=== PATIENT | female | born 2000 | race Caucasian/White ===

== ENCOUNTER 2019-04-14 13:57 | Outpatient (CLI) | payer OTHER, SELFPAY ==
--- NOTE | 2019-04-14 14:25 | DI.RAD_ITS ---
EXAM: XR CHEST 2V PA LATERAL INDICATION: CHEST CONGESTION R09.89, COSTOCHONDRAL CHEST PAIN R07.89. COMPARISON: No exams were available for comparison TECHNIQUE: 2D digital imaging was performed. FINDINGS: Cardiac and mediastinal contours have a normal appearance. The lungs are well inflated clear. No in filtrate, effusion or pneumothorax is seen. No rib fracture is visible. This the spine shows mild dextroscoliosis. IMPRESSION: Negative chest x-ray
== END 2019-04-14 14:17 ==
PROVIDERS: PCP Family Medicine; Visit Provider Nurse Practitioner Family
DX: R09.89 Other specified symptoms and signs involving the circulatory and respiratory systems (principal); R07.89 Other chest pain
CPT/HCPCS: 71046

== ENCOUNTER 2019-04-22 14:27 | Outpatient (REF) | payer OTHER, SELFPAY ==
[2019-04-22 15:58] LABS: D-Dimer 79 ng/mlFEU (<500)
[2019-04-22 16:07] LABS: Abs Immature Grans 0.02 k/cumm (0.0-0.09); Absolute Basophil Count 0.03 k/cumm (0.0-0.2); Absolute Eosinophil Count 0.12 k/cumm (0.0-0.7); Absolute Lymphocyte Count 2.87 k/cumm (1.2-3.4); Absolute Neutrophil Count 5.61 k/cumm (1.2-6.7); Basophils % 0.3; Eosinophils % 1.3; HCT 41.3 % (36.0-46.0); HGB 13.7 g/dL (12.0-15.5); Immature Grans % 0.2 %; Lymphocytes % 30.4; Mean Corp. HGB Concentration 33.2 g/dL (32.0-36.0); Mean Corpuscular Hemoglobin 30.6 pg (27.0-33.0); Mean Corpuscular Volume 92.2 fL (80-95); Mean Platelet Volume 10.6 fL (8.0-11.0); Monocytes % 8.5; Neutrophils % 59.3; Platelet Count 289 x1000/uL (130-400); RBC 4.48 m/cumm (4.00-5.20); RBC Distribution Width 11.8 % (11.7-14.6); White Blood Cell Count 9.45 k/cumm (4.4-10.8)
== END 2019-04-22 14:47 ==
LOC: NCHCN 14:27
PROVIDERS: PCP Nurse Practitioner Family; Visit Provider Nurse Practitioner Family
DX: R07.9 Chest pain, unspecified (principal)
CPT/HCPCS: 85025; 85379